=== PATIENT | female | born 1990 | race Caucasian/White ===

== ENCOUNTER 2016-12-15 09:55 | Inpatient (IN) | payer OTHER ==
[~2016-12-15] VITALS: Ht 162.6 cm; Wt 75.9 kg
[2017-02-19] VITALS (42 sets, daily range): BP systolic 102–137; BP diastolic 51–73; PULSE 64–103; TEMP 97.2–98.5
[2017-02-19] MEDS ORDERED: PRENATAL1 TA7 PO (07:28)
[2017-02-19 08:29] LABS: BASO % 0.3 % (0.0-2.0); EOS # 0.1 (0.0-0.7); EOS % 0.8 % (0-4.0); GRAN # 7.6 (1.4-6.5); GRAN % 73.3 % (42.2-75.2); HEMATOCRIT 37.1 % (37.0-47.0); HEMOGLOBIN 13.1 g/dl (12.5-16.0); LYMPH # 1.9 (1.2-3.4); LYMPH % 17.8 % (20.0-51.0); MEAN CELL VOLUME 90 fl (80.0-100.0); MEAN CORPUSCULAR HEMOGLOBIN 32 pg (27.0-31.0); MEAN CORPUSCULAR HGB CONC 35 g/dl (33.0-37.0); MEAN PLATELET VOLUME 10.7 fl (7.4-10.4); MONO # 0.7 (0.1-0.6); MONO % 7.1 % (1.7-9.3); PLATELET COUNT 221 K/mm3 (130-400); RED BLOOD COUNT 4.12 M/mm3 (4.10-5.30); WHITE BLOOD COUNT 10.4 K/mm3 (4.8-10.8)
[2017-02-19] MEDS ORDERED: PERCOCET 325 MG1 TA2 PO (10:31)
[2017-02-19] MEDS ORDERED: MOTRIN 800800 MG/TAB PO (10:31)
[2017-02-20 00:30] VITALS: BP 116/65; PULSE 90
[2017-02-20 04:30] VITALS: BP 100/50; PULSE 79
[2017-02-20 09:18] VITALS: BP 94/48; PULSE 69; TEMP 97.8
[2017-02-20 12:32] VITALS: BP 105/52; PULSE 86; TEMP 98.4
[2017-02-20 16:10] VITALS: BP 101/51; PULSE 82; TEMP 98.3
== END 2017-02-20 20:05 | disposition home or self-care (01) | DRG 775 ==
LOC: EDSTATUS 02-19 06:32 → LDR 02-19 06:38 → LDRO 02-19 09:54 → OB 02-19 19:45
PROVIDERS: Obstetrics & Gynecology
PROC: 10E0XZZ Delivery of Products of Conception, External Approach (ICD-10-PCS; principal; 2017-02-19)
PROC: 0KQM0ZZ Repair Perineum Muscle, Open Approach (ICD-10-PCS; 2017-02-19)
DX: O48.0 Post-term pregnancy (principal); O36.0130 Maternal care for anti-D [Rh] antibodies, third trimester, not applicable or unspecified; O75.89 Other specified complications of labor and delivery; O70.1 Second degree perineal laceration during delivery; Z3A.40 40 weeks gestation of pregnancy; Z37.0 Single live birth
CPT/HCPCS: J2210; J2590; J2791; J7120

== ENCOUNTER → 2017-02-22 | Outpatient (CLI) | payer OTHER ==
[~2017-02-22] MED LIST: MOTRIN 800800 MG/TAB PO; PERCOCET 325 MG1 TA2 PO; PRENATAL1 TA7 PO
== END ==
LOC: LAC 15:03
DX: Z39.1 Encounter for care and examination of lactating mother (principal); Z71.89 Other specified counseling; N64.59 Other signs and symptoms in breast

== ENCOUNTER → 2018-12-06 | Outpatient (CLI) | payer BC | LOC: COL.RAD 14:34 | DX: E22.1 Hyperprolactinemia (principal) | CPT/HCPCS: A9585 ==

== ENCOUNTER 2020-12-07 17:56 | Inpatient (IN) | payer BC ==
[2020-12-07] VITALS (25 sets, daily range): BP systolic 96–133; BP diastolic 51–78; PULSE 66–81; TEMP 98.6–98.7
[~2020-12-07] VITALS: Ht 162.6 cm; Wt 82.9 kg
[2020-12-07] MEDS ORDERED: CEPHALEXIN500 M1 PO (18:39)
[2020-12-07] MEDS ORDERED: ZOLOFT 25MG25 MG PO (18:40)
[2020-12-07 19:41] LABS: BASO % 0.2 % (0.0-2.0); EOS # 0.1 (0.0-0.7); EOS % 0.6 % (0-4.0); GRAN # 9.4 (1.4-6.5); GRAN % 76.3 % (42.2-75.2); HEMOGLOBIN 12.6 g/dl (12.5-16.0); LYMPH # 1.9 (1.2-3.4); LYMPH % 15.5 % (20.0-51.0); MEAN CELL VOLUME 90 fl (80.0-100.0); MEAN CORPUSCULAR HEMOGLOBIN 32 pg (27.0-31.0); MEAN CORPUSCULAR HGB CONC 35 g/dl (33.0-37.0); MEAN PLATELET VOLUME 10.6 fl (7.4-10.4); MONO # 0.8 (0.1-0.6); MONO % 6.7 % (1.7-9.3); PLATELET COUNT 220 K/mm3 (130-400)
[2020-12-08] VITALS (12 sets, daily range): BP systolic 104–141; BP diastolic 50–79; PULSE 64–88; TEMP 98.5–99.2
[2020-12-09] VITALS: BP 112/55; PULSE 70; TEMP 97.8
[2020-12-09 07:15] VITALS: BP 114/51; PULSE 78; TEMP 97.8
[2020-12-09] MEDS ORDERED: IBU600 MG PO (08:24)
== END 2020-12-09 12:00 | disposition home or self-care (01) | DRG 806 ==
LOC: LDRO 17:56 → LDR 19:23 → OB 12-08 04:30
PROVIDERS: Obstetrics & Gynecology; ADMIT Student in an Organized Health Care Education/Training Program
PROC: 10907ZC Drainage of Amniotic Fluid, Therapeutic from Products of Conception, Via Natural or Artificial Opening (ICD-10-PCS; principal; 2020-12-08)
PROC: 10E0XZZ Delivery of Products of Conception, External Approach (ICD-10-PCS; 2020-12-08)
PROC: 0KQM0ZZ Repair Perineum Muscle, Open Approach (ICD-10-PCS; 2020-12-08)
DX: O99.344 Other mental disorders complicating childbirth (principal); E22.1 Hyperprolactinemia; Z37.0 Single live birth; F41.8 Other specified anxiety disorders; O70.1 Second degree perineal laceration during delivery; O99.284 Endocrine, nutritional and metabolic diseases complicating childbirth; O26.893 Other specified pregnancy related conditions, third trimester; Z3A.39 39 weeks gestation of pregnancy; Z67.11 Type A blood, Rh negative
CPT/HCPCS: J2590; J2791; J2795; J7120